=== PATIENT | female | born 1955 | race Caucasian/White ===

== ENCOUNTER → 2017-12-15 | Outpatient (CLI) | payer BC ==
[~2017-12-15] MED LIST: IOHEXOL 240 MG/ML 50ML VIAL. ONE; IOHEXOL 240 MG/ML 50ML VIAL. PO ONE; IOHEXOL 300 MG/ML 75 ML VIAL. IV ONE
--- NOTE | 2017-12-15 10:00 | RAD ---
Indication: Left lower quadrant pain for 10 days. Periumbilical pain. Technique: Axial images and coronal and sagittal reformatted images are provided. Oral contrast and 75 mL of intravenous Omnipaque 300 was administered without complication. No comparison is available. One or more of the following individualized dose reduction techniques were utilized for this examination: 1. Automated exposure control 2. Adjustment of the mA and/or kV according to patient size 3. Use of iterative reconstruction technique Findings: There is dependent atelectasis. There is no pleural effusion. The heart is not enlarged. Liver, gallbladder, spleen, pancreas, and adrenals are all grossly unremarkable. Kidneys are symmetrically perfused. Parapelvic cysts are noted in the kidneys. Aorta is normal caliber with minimal atheromatous disease. There is a retroaortic left renal vein which is a normal vascular variant. There is no dilated small bowel loop or mural thickening. There is a small hiatal hernia. There is probably a small duodenal diverticulum. Appendix is not definitely visualized, there are no secondary findings of an appendicitis. Tiny umbilical hernia is noted without evidence of incarceration. Bladder is unremarkable. Uterus is reported as surgically absent. There is mild fullness of the vaginal cuff, correlate with exam findings. There is no adnexal mass. There are degenerative changes in the spine. Sclerotic lesion in the left ilium is nonspecific but most frequently a bone island. IMPRESSION: 1. No acute abdominal findings. Electronically signed by: Gavin Wilkins MD (12/15/2017 9:57 AM) [id number]
== END | disposition home or self-care (01) ==
LOC: CT 07:32
PROVIDERS: ATTEND Nurse Practitioner Adult Health
DX: K44.9 Diaphragmatic hernia without obstruction or gangrene (principal); I70.0 Atherosclerosis of aorta; N94.89 Other specified conditions associated with female genital organs and menstrual cycle
CPT/HCPCS: 74177; Q9966; Q9967